=== PATIENT | female | born 2005 | race Caucasian/White ===

== ENCOUNTER 2024-03-23 17:35 | Emergency (ER) | payer BC ==
[2024-03-23] MEDS: Lidocaine 1% 5 ML VIAL INJECT STA (18:25)
== END 2024-03-23 19:09 | disposition home or self-care (01) ==
LOC: MW.ED 17:35
DX: S61.217A Laceration without foreign body of left little finger without damage to nail, initial encounter (principal); J45.909 Unspecified asthma, uncomplicated; Z75.8 Other problems related to medical facilities and other health care; W26.0XXA Contact with knife, initial encounter
CPT/HCPCS: 12001; 99282; 99283; J3490